=== PATIENT | female | born 1980 | race Two or more races ===

== ENCOUNTER 2017-07-01 09:29 | Day surgery (SDC) | payer OTHER ==
[~2017-07-01 09:29] MED LIST: PRENATABS RX T1 EACH PO
== END 2017-07-01 16:40 | disposition home or self-care (01) ==
LOC: CIR.AMB 09:29
DX: O02.1 Missed abortion (principal)

== ENCOUNTER 2017-11-15 19:34 | Emergency (ER) | payer OTHER ==
[~2017-11-15] VITALS: Ht 160 cm; Wt 61.2 kg
== END 2017-11-15 22:52 | disposition home or self-care (01) ==
LOC: ER 19:34
DX: O23.41 Unspecified infection of urinary tract in pregnancy, first trimester (principal); Z34.01 Encounter for supervision of normal first pregnancy, first trimester

== ENCOUNTER → 2017-11-22 | Emergency (ER) | payer OTHER ==
[~2017-11-22] VITALS: Ht 160 cm; Wt 62.1 kg
== END | disposition home or self-care (01) ==
LOC: ER 14:45
DX: N20.0 Calculus of kidney (principal); N39.0 Urinary tract infection, site not specified

== ENCOUNTER 2017-11-23 15:09 | Outpatient (CLI) | payer OTHER | END 2017-11-23 15:21 | disposition home or self-care (01) | LOC: NUCLEAR 15:09 | DX: I87.2 Venous insufficiency (chronic) (peripheral) (principal) ==

== ENCOUNTER → 2017-11-30 | Outpatient (CLI) | payer OTHER | END | disposition home or self-care (01) | LOC: SONOGRAMA 11:53 | DX: N30.00 Acute cystitis without hematuria (principal); N20.0 Calculus of kidney; N20.1 Calculus of ureter ==

== ENCOUNTER → 2018-02-22 | Outpatient (CLI) | payer OTHER | END | disposition home or self-care (01) | LOC: OBS/DEL 14:22 | DX: O60.02 Preterm labor without delivery, second trimester (principal); Z34.82 Encounter for supervision of other normal pregnancy, second trimester ==

== ENCOUNTER 2018-04-14 09:53 | Outpatient (CLI) | payer OTHER | END 2018-04-14 11:12 | disposition home or self-care (01) | LOC: NST 09:53 | DX: Z34.83 Encounter for supervision of other normal pregnancy, third trimester (principal) ==

== ENCOUNTER 2018-05-20 09:53 | Outpatient (CLI) | payer OTHER | END 2018-05-20 11:04 | disposition home or self-care (01) | LOC: NST 09:53 | DX: Z34.83 Encounter for supervision of other normal pregnancy, third trimester (principal) ==

== ENCOUNTER 2018-05-21 09:34 | Outpatient (CLI) | payer OTHER | END 2018-05-21 10:48 | disposition home or self-care (01) | LOC: NST 09:34 | DX: Z34.83 Encounter for supervision of other normal pregnancy, third trimester (principal) ==

== ENCOUNTER 2018-06-04 09:05 | Outpatient (CLI) | payer OTHER | END 2018-06-04 10:06 | disposition home or self-care (01) | LOC: NST 09:05 | DX: Z34.83 Encounter for supervision of other normal pregnancy, third trimester (principal) ==

== ENCOUNTER 2018-06-14 20:29 | Inpatient (IN) | payer OTHER ==
[~2018-06-14] VITALS: Ht 160 cm; Wt 73.9 kg
[2018-06-14] MEDS ORDERED: IRON236 MG PO (22:59)
== END 2018-06-16 10:08 | disposition home or self-care (01) | DRG 806 ==
LOC: LDR 20:29 → OB/GYN 20:29
PROVIDERS: ADMIT Obstetrics & Gynecology
PROC: 10E0XZZ Delivery of Products of Conception, External Approach (ICD-10-PCS; principal; 2018-06-14)
PROC: 0UQGXZZ Repair Vagina, External Approach (ICD-10-PCS; 2018-06-14)
PROC: 4A1HXCZ Monitoring of Products of Conception, Cardiac Rate, External Approach (ICD-10-PCS; 2018-06-14)
DX: O60.14X0 Preterm labor third trimester with preterm delivery third trimester, not applicable or unspecified (principal); O71.4 Obstetric high vaginal laceration alone; Z37.0 Single live birth; Z3A.36 36 weeks gestation of pregnancy